=== PATIENT | male | born 1955 ===

== ENCOUNTER 2023-01-09 11:32 | Emergency (ER) | payer OTHER ==
[2023-01-09 11:47] VITALS: BP 141/81
--- NOTE | 2023-01-09 12:02 | ED Physician Documentation ---
PD HPI LOWER EXT INJURY - Stated complaint Stated Complaint: MALE - Chief complaint Chief Complaint: Ext Problem - History obtained from History obtained from: Patient - Additional information Additional information: Golfing yesterday and felt a strain in his right groin while driving the ball. Now he has swelling and discoloration there. PD PAST MEDICAL HISTORY - Past Medical History Past Medical History: Yes : Benign prostate hypertrophy - Past Surgical History Past Surgical History: Yes General: Appendectomy Ortho: Hip replacement, Shoulder arthroplasty - Present Medications Home Medications: Ambulatory Orders Medication Instructions Recorded Confirmed Aspirin [[place]] 81 mg PO DAILY 01/09/23 01/09/23 Tadalafil [Cialis] 2.5 mg PO DAILY 01/09/23 01/09/23 Tamsulosin [Flomax] 1 cap PO DAILY 01/09/23 01/09/23 - Allergies Allergies/Adverse Reactions: Allergies Allergy/AdvReac Type Severity Reaction Status Date / Time No Known Drug Allergies Allergy Verified 01/09/23 11:47 - Social History Does the pt smoke?: No Smoking Status: Never smoker Does the pt drink ETOH?: Yes Does the pt have substance abuse?: No - Immunizations Immunizations are current?: Yes PD ED PE NORMAL - Vitals Vital signs reviewed: Yes - General General: Alert and oriented X 3, No acute distress - Neuro Neuro: Alert and oriented X 3, Normal speech PD ED PE EXPANDED - Extremities CARMEN LE visual: 1 - tenderness (There is a hematoma here with discoloration of the skin. There is no tenderness in the inguinal ligaments or hernia mass. Normal range of motion of the leg and normal gait without limp.) Results - Vitals Vitals: Vital Signs - 24 hr 01/09/23 11:42 Temperature 36.4 C L Heart Rate 75 Respiratory 14 Rate Blood Pressure 141/81 H O2 Saturation 97 Oxygen O2 Source Room air PD Medical Decision Making - ED course ED course: 67-year-old gentleman with a right thigh traumatic hematoma. The conservative nature of this diagnosis and home care was discussed. Departure - Departure Disposition: 01 Home, Self Care Clinical Impression: Traumatic hematoma of groin Condition: Good Record reviewed to determine appropriate education?: Yes Instructions: ED Hematoma Comments: Tylenol as needed for pain. Ice, general rest. Return as needed.
== END 2023-01-09 12:36 | disposition home or self-care (01) ==
LOC: ED 11:32
DX: S30.1XXA Contusion of abdominal wall, initial encounter (principal); X58.XXXA Exposure to other specified factors, initial encounter; Y93.53 Activity, golf
CPT/HCPCS: 99281; 99283